=== PATIENT | male | born 1990 | race Caucasian/White ===

== ENCOUNTER → 2020-05-08 | Outpatient (CLI) | payer SELFPAY | LOC: M LABSMTC 10:06 | PROVIDERS: ATTEND Pediatrics | DX: Z20.822 Contact with and (suspected) exposure to COVID-19 (principal) ==

== ENCOUNTER → 2020-05-10 | Outpatient (REF) | payer BC, OTHER | LOC: M LAB REF 18:24 | PROVIDERS: ATTEND Physician Assistant | DX: R50.9 Fever, unspecified (principal); R51.9 Headache, unspecified ==